=== PATIENT | female | born 1980 | race Caucasian/White ===

== ENCOUNTER 2018-04-06 08:58 | Day surgery (SDC) | payer SELFPAY ==
[2018-04-02 15:19] VITALS: BMI 21.4
[2018-04-06] MEDS ORDERED: fentaNYL CITRATE 250 MCG/5 ML VIAL ONE (10:20)
[2018-04-06] MEDS ORDERED: MIDAZOLAM HCL 2 MG/2 ML SINGLE DOSE VIAL ONE (10:20)
[2018-04-06] MEDS ORDERED: PROPOFOL 20 ML ONE (10:20)
[2018-04-06] MEDS ORDERED: ROCURONIUM BROMIDE 50 MG/5 ML VIAL ONE ×2 (10:21→12:46)
[2018-04-06] MEDS ORDERED: LIDOCAINE HCL/PF 2% SDV 5ML VIAL ONE (10:21)
[2018-04-06] MEDS ORDERED: ONDANSETRON 4 MG/2 ML VIAL ONE ×2 (10:21→14:50)
[2018-04-06] MEDS ORDERED: DEXAMETHASONE SOD PHOSPHATE 4 MG/1 ML VIAL ONE (10:21)
[2018-04-06] MEDS ORDERED: ceFAZolin SODIUM 1 GM VIAL ONE ×2 (10:21→10:45)
[2018-04-06] MEDS ORDERED: LIDOCAINE HCL 2% JELLY (5 ML/TUBE) ONE (10:21)
[2018-04-06] MEDS ORDERED: VANCOMYCIN 1,000 MG VIAL (RESTRICTED TO ID ONLY) ONE (10:45)
[2018-04-06] MEDS ORDERED: GENTAMICIN SO4 80 MG/2 ML VIAL ONE ×2 (10:45→10:46)
[2018-04-06] MEDS ORDERED: BUPIVACAINE HCL/PF 2.5 MG/ML - 30 ML VIAL IJ ONE (10:53)
[2018-04-06] MEDS ORDERED: LIDOCAINE 1%/EPI 1:100000 (20 ML MULTI DOSE VIAL) ONE (10:53)
[2018-04-06] MEDS ORDERED: HYDROmorphone HCL/PF 1 MG/ML VIAL (FOR PYXIS CHARGING ONLY) ONE (10:54)
[2018-04-06] MEDS ORDERED: DESFLURANE GAS 240 ML BOTTLE IH ONE (12:49)
[2018-04-06] MEDS ORDERED: NEOSTIGMINE METHYLSULFATE 0.5 MG/ML - 10 ML MDV ONE (13:31)
[2018-04-06] MEDS ORDERED: GUM MASTIC/STORAX/MSAL/ALCOHOL 1 DRP DROPSBTL MC ONE (13:54)
[2018-04-06] MEDS ORDERED: ONDANSETRON 4 MG/2 ML VIAL IVPUSH PRN (14:42)
[2018-04-06] MEDS ORDERED: oxyCODONE HCL 5 MG TABLET PO PRN ×2 (14:42)
[2018-04-06] MEDS ORDERED: PROMETHAZINE HCL 25 MG/1 ML VIAL IVPUSH PRN (14:42)
[2018-04-06] MEDS ORDERED: LACTATED RINGERS SOLUTION 1,000 ML IV SCH (14:45)
[2018-04-06] MEDS ORDERED: ACETAMINOPHEN 1000 MG/100 ML VIAL (NON FORMULARY) IVPB PRN (14:48)
[2018-04-06] MEDS ORDERED: ACETAMINOPHEN 325 MG TABLET (FP) PO PRN (14:49)
[2018-04-06] MEDS ORDERED: ONDANSETRON 4 MG/2 ML VIAL IVPUSH ONE (14:55)
[2018-04-06] MEDS ORDERED: PROMETHAZINE HCL 25 MG/1 ML VIAL ONE (15:39)
[2018-04-06] MEDS ORDERED: PROMETHAZINE HCL 25 MG/1 ML VIAL IVPUSH ONE (15:41)
[2018-04-06] MEDS ORDERED: diazePAM 5 MG TABLET PO ONE (17:00)
[2018-04-06] MEDS ORDERED: diazePAM 5 MG TABLET ONE (17:13)
[2018-04-06 18:13] VITALS: PULSE 86; TEMP 98.6
[2018-04-06 18:35] VITALS: BP 120/82
--- NOTE | 2018-04-19 09:38 | OP ---
DATE OF OPERATION: 04/06/2018 PREOPERATIVE DIAGNOSIS: 1. Bilateral breast deflation with ptosis. 2. Abdominal lipodystrophy. POSTOPERATIVE DIAGNOSIS: 1. Bilateral breast deflation with ptosis. 2. Abdominal lipodystrophy. PROCEDURE: 1. Bilateral submuscular silicone breast augmentation (Sientra smooth round 350 mL). 2. Abdominoplasty. ATTENDING SURGEON: Domenico Orellana MD ANESTHESIA: General endotracheal. ESTIMATED BLOOD LOSS: 100 mL SPECIMENS: None. DRAINS: Number 15 round Alvarez drain x1 to abdomen. COMPLICATIONS: None. CONDITION: Stable to recovery room, extubated. INDICATIONS: The patient is a 38-year-old female who presents with abdominal lipodystrophy as well as bilateral breast deflation after childbirth. The risks, benefits, and alternatives were discussed with the patient in detail. All questions have been answered. The risks include but are not limited to bleeding, infection, pain, need for revision or further surgery, damage to nearby structures including nerves, arteries, veins, and tendons. The patient understands these risks and has elected to proceed with surgery. DESCRIPTION OF PROCEDURE: After proper identification and making the patient in the preoperative holding area, the patient was transported to the operating room and placed supine on the table where noninvasive anesthesia monitors were applied. Intravenous access was established. General anesthesia was administered and the patient was intubated without difficulty. SCDs were applied to the bilateral lower extremities. Intravenous antibiotics were then given. The patient's bilateral breasts as well as abdomen and flanks were then prepped and draped in the usual sterile fashion. Attention was first turned towards the abdomen where the lower transverse incision was made with a number 10-blade. This was carried down to the anterior abdominal wall. The umbilicus was then circumferentially incised and a periumbilical dissection was performed with the Metzenbaum scissors. The abdominal skin flap was then raised up to the xiphoid process in the midline and the costal margin bilaterally. At this point, the rectus plication was performed using a number 0 barbed resorbable suture in a simple running fashion, both supraumbilically and infraumbilically. Once this was completed, the patient was placed into a flexed position. The amount of skin to be removed was marked and this was excised and discarded. The lower abdominal incision was then reapproximated with a skin stapler. The site of the umbilicus transposition was marked. A number 15 round Alvarez drain was then placed in the abdominal pocket and brought out through a separate stab incision laterally and secured to the skin with 3-0 nylon suture. The abdominal pocket was irrigated and hemostasis was achieved. The lower abdominal closure was performed in layers using a 2-0 Vicryl in an interrupted buried fashion in Omar's layer followed by a 3-0 PDS in a buried deep dermal fashion and finally a 3-0 Monocryl in a running subcuticular fashion. At the site of the umbilicus transposition, which had been marked, a vertically oriented ellipse was excised at this site and the umbilicus was transposed and inset using a 3-0 PDS suture in a buried deep dermal fashion, followed by 3-0 Monocryl in a running subcuticular fashion. Mastisol and Steri-Strips were applied to this incision line. At this point, attention was turned towards the right breast where the inframammary fold incision was made with a number 10 blade. This was carried down through the subcutaneous tissue with electrocautery. The pectoralis major muscle was identified. A subpectoral dissection was then performed. The pectoralis major muscle was then released up to the level of the 4 o'clock position. At this point, the right breast pocket was irrigated and hemostasis was ensured. Triple antibiotic solution was then used to again irrigate the right breast pocket. Once hemostasis was confirmed, the was opened. A Sientra 350 mL smooth round silicone implant was opened. It was placed into the right breast pocket in the submuscular plane. Car was taken to ensure good orientation of the implant. Once this was confirmed, the inframammary fold incision was closed in layers using a 3-0 PDS in a buried deep dermal fashion followed by a 4-0 Monocryl in a running subcuticular fashion. A similar procedure was then performed on the left breast; therefore, only one side will be dictated. Mastisol and Steri-Strips were applied to bilateral breast incision and closure lines. The patient was placed into a soft surgical bra as well as an abdominal binder and was slowly awakened and extubated without incident. Transported to the recovery room in stable condition. Yudy [id number]
== END 2018-04-06 18:43 | disposition home or self-care (01) ==
LOC: FASU 08:58
PROVIDERS: ATTEND Plastic Surgery
PROC: 0J080ZZ Alteration of Abdomen Subcutaneous Tissue and Fascia, Open Approach (ICD-10-PCS; principal; 2018-04-06 11:06)
PROC: 0H0V07Z Alteration of Bilateral Breast with Autologous Tissue Substitute, Open Approach (ICD-10-PCS; 2018-04-06 11:06)
DX: Z41.1 Encounter for cosmetic surgery (principal)
CPT/HCPCS: 84703; 94760